=== PATIENT | male | born 1955 | race Caucasian/White ===

== ENCOUNTER → 2020-01-28 08:24 | Outpatient (BNVA) | payer BC, SELFPAY | PROVIDERS: PCP Nurse Practitioner Family; Referring Provider Nurse Practitioner Family; Visit Provider Internal Medicine | DX: I48.19 Other persistent atrial fibrillation (principal); I49.3 Ventricular premature depolarization; Z79.01 Long term (current) use of anticoagulants; Z79.899 Other long term (current) drug therapy | CPT/HCPCS: 93005 ==

== ENCOUNTER → 2020-02-06 14:21 | Outpatient (REF) | payer BC, SELFPAY ==
--- NOTE | 2020-02-06 14:44 | CA_ITS ---
Transthoracic Echocardiogram Patient (Last, First, Middle): Ravindra Buchanan J Gender: Male Date of : 1955 Age: 64 Procedure Date: 02/06/2020 Procedure Type: Transthoracic Echocardiogram Location: OP Height: 165.1 cm Weight: 52.16 kg BSA: 1.56 m2 Heart Rate: bpm BP: 115 / 76 mmHg Stallion Manager: FRANCISCA Referring MD: Shine Thomas MD Symptoms: I48.19 - Other persistent atrial fibrillation Study Quality: Fair ECG Rhythm: Atrial Fibrillation Conclusions: - The left ventricular systolic function is mild to moderately decreased. The visually estimated ejection fraction is between 40-45%. - There is moderately decreased right ventricular systolic function. - There is mild mitral valve regurgitation. Findings Left Ventricle Normal left ventricular cavity size. There is normal left ventricular wall thickness. The left ventricular systolic function is mild to moderately decreased. The visually estimated ejection fraction is between 40-45%. There is moderate global hypokinesis. Diastolic function is indeterminate on the basis of available data. Right Ventricle Normal right ventricular cavity size. There is moderately decreased right ventricular systolic function. Atria The left atrium is moderately dilated. The right atrium is normal in size. Aortic Valve There is a normal trileaflet aortic valve. There is no aortic valve stenosis. There is no aortic valve regurgitation. Mitral Valve There is mild mitral annular calcification. There is mild mitral valve regurgitation. There is no mitral valve stenosis. Pulmonic Valve The pulmonic valve was not well visualized. Tricuspid Valve Normal tricuspid valve structure. There is trace tricuspid valve regurgitation. The pulmonary artery systolic pressure is normal. Great Vessels The aortic annulus, sinuses of valsalva, and asc aorta are normal in size. Venous The inferior vena cava is normal in size and collapses greater than 50% with inspiration. Pericardium/Pleural There is no evidence of pericardial effusion. Prior Study Comparison Changes noted compared to prior study dated: 01/23/2019. LVEF diminished. Measurements 2D Linear Measurements IVSd: 0.76 0.6-0.9/0.6-1.0 cm LVIDd: 4.50 3.9-5.3/4.2-5.9 cm LVIDd Index: 2.88 2.4-3.2/2.2-3.1 cm/m2 LVIDs: 4.09 2.0-3.6 cm LVPWd: 0.67 0.7-1.1 cm Ao Root: 3.10 2.1-3.5 cm LA Diam: 3.60 2.7-3.8/3.0-4.0 cm LAIDs Index: 2.31 1.5-2.3 cm/m2 LV Mass: 121.99 67-162/88-224 g LV Mass Index: 78.20 43-95/49-115 g/m2 LVOT Diam: 2.10 3.0+(-)1.3 cm 2D Systolic Function EF 4C: 39.40 >55% EF 2C: 52.10 >55% Mitral Valve MV Pk E: 0.61 MV Decel Time: 192.00 E'Lateral: 13.50 E'Medial: 11.90 E/E' Med: 5.10 E/E' Lat: 4.50 PHT: 56.00 MVA PHT: 3.93 Decel [place]: 3.81 Aortic Valve AoV Pk Adriel: 0.86 AoV Pk Grad: 3.00 LVOT LVOT Pk Adriel: 0.53 LVOT Mn Adriel: 0.33 LVOT VTI: 0.10 LVOT Pk Grad: 1.00 LVOT Mn Grad: 1.00 LVOT Diam: 2.10 LVOT Area: 3.46 Diastolic Function MV Pk E: 0.61 E'Medial: 11.90 E/E' Med: 5.10 E' Laterial: 13.50 E/E' Lat: 4.50 Tricuspid Valve TR Pk Adriel: 2.13 TR Pk Grad: 18.00 RA Press: 3.00 RVSP: 21.00 Great Vessels Aorta Ao Root-2D: 3.10 2.0-3.7 cm Ao Asc: 3.30 2.1-3.4 cm Updated in Other Vendor System with Status of Final Shine Thomas MD electronically signed on 02/09/2020 10:07:24 AM with status of Final
== END ==
LOC: HO.CARD 14:21
PROVIDERS: Visit Provider Internal Medicine
DX: I48.19 Other persistent atrial fibrillation (principal)
CPT/HCPCS: 93306

== ENCOUNTER 2020-02-19 10:26 | Outpatient (REF) | payer BC, SELFPAY ==
--- NOTE | 2020-02-19 10:26 | CT_ITS ---
EXAMINATION: CT CHEST SCREENING CLINICAL INFORMATION: Smoking history COMPARISON: US chest CT scan January 2019 TECHNIQUE: Multidetector volumetric CT imaging of the chest is performed without contrast using low dose technique. Additional 2D coronal and sagittal reformatted images and axial 3D maximum intensity projection (MIP) images are generated on the CT workstation. This CT examination was performed using dose optimization techniques as appropriate, variously including the following: *Automated exposure control *Adjustment of mA and/or kV according to patient size (this includes techniques or standardized protocols for targeted exams where dose is matched to indication/reason for exam; i.e. extremities or head) *Use of iterative reconstruction technique DLP: 36 mGy-cm FINDINGS: LUNGS: There is evidence of emphysema. There is mild apical pleural and parenchymal scarring that is stable. There is a 3 x 4 mm calcified left apical nodule axial image 51 series 5. There is a 2 mm calcified right upper lobe nodule axial image 1:15 series 5. These are stable. No new pulmonary nodule is seen. There is scarring or subsegmental atelectasis at the left lung base that is stable. No endobronchial or endotracheal lesion is seen. MEDIASTINUM: Mild coronary artery and aortic valve calcification. The mediastinum is otherwise normal. PLEURA: There is no pleural effusion. No pleural mass or thickening. AXILLA: No lymphadenopathy. UPPER ABDOMEN: There is a small stone in the upper pole of the left kidney. There is calcification at the origin of the renal arteries, left greater than right. OSSEOUS STRUCTURES: There are degenerative changes of the spine and curvature of the midthoracic spine to the right. CT/CT lung screening IMPRESSION: Emphysema and biapical pleural and parenchymal scarring. Stable small calcified pulmonary nodules. ASSESSMENT: Lung-RADS category 2: Benign RECOMMENDATION: Annual low-dose chest CT follow-up recommended.
== END 2020-02-19 10:27 | disposition home or self-care (01) ==
LOC: HO.CT 10:26
PROVIDERS: PCP Nurse Practitioner Family; Visit Provider Surgery
DX: Z87.891 Personal history of nicotine dependence (principal)
CPT/HCPCS: 71250

== ENCOUNTER → 2020-02-25 07:47 | Outpatient (REF) | payer BC, SELFPAY ==
--- NOTE | 2020-02-25 | NM_ITS ---
Myocardial perfusion study Indication: Atrial fibrillation to evaluate for myocardial ischemia Technique: The patient was brought in for a Lexiscan perfusion study on 02/25/2020. Patient performed low-level exercise and was injected 0.4 mg of Lexiscan intravenously. Within a minute of injection, 25 mCi of sestamibi was given intravenously. Images were obtained using the SPECT gamma camera interlaced with the gating device. Images were obtained in supine position. Resting perfusion study was performed on 02/26/2020. Patient was administered 25 mCi of sestamibi intravenously at rest. Images were then obtained in supine position. Images obtained with and without CT attenuation. Total DLP 54 mGy-cm. Images were processed with the software and compared side to side in short axis, horizontal long axis and vertical long axis views. Findings: The stress perfusion study showed non attenuated images show minimally reduced uptake in the mid anteroseptal region of the LV myocardium as well as the basal and mid inferior wall of the LV myocardium. Attenuation corrected images show minimally reduced uptake in the apex of the LV myocardium. The gated study shows normal LV systolic function with calculated LVEF of 60%. LV cavity is normal size. The gated study shows normal systolic wall thickening and contraction of segments. Resting study shows no change in perfusion pattern compared to stress perfusion study. Gating at rest reveals normal systolic wall motion with ejection fraction at greater than 60 %. The findings are consistent with normal myocardial perfusion. NM/NM lizbeth perf SPECT rest & str Impression: 1. Myocardial perfusion imaging study shows normal myocardial perfusion 2. Gated LVEF is 60% 3. Transient ischemic dilatation not present EKG nondiagnostic for ischemia
--- NOTE | 2020-02-25 07:53 | CA_ITS ---
Acquisition Time: 2020-02-25 08:00:46 Total Exercise Time: 00:02:00 Test Indications: Abnormal ECG Medications: APIXABAN DILTIAZEM Protocol: LEXISCAN Max HR: 112 BPM 71% of Pred: 156 BPM Max BP: 122/078 mmHG Max Work Load: 1.0 METS Pharmacological stress test usiong Lexiscan while sitting. Pt tolerated well, denies any anginal sx. EKG with a-fib and PVC's at baseline, during the test and in recovery. Nuclear images to follow. Mildly hypotensive after lexiscan injection, that normalizes in recovery, without sx. Test reviewed with Dr. Thomas Referred By: Heaven [place] Overread By: Maya Menjivar
== END ==
LOC: HO.CARD 07:47
PROVIDERS: PCP Nurse Practitioner Family; Visit Provider Nurse Practitioner Family
DX: R93.1 Abnormal findings on diagnostic imaging of heart and coronary circulation (principal); I49.3 Ventricular premature depolarization; I48.19 Other persistent atrial fibrillation
CPT/HCPCS: 78452; 93017; A9500; J0280; J2785

== ENCOUNTER → 2020-03-18 08:20 | Outpatient (BNVA) | payer OTHER, SELFPAY | PROVIDERS: PCP Nurse Practitioner Family; Visit Provider Physician Assistant Medical | DX: S61.411A Laceration without foreign body of right hand, initial encounter (principal); W26.9XXA Contact with unspecified sharp object(s), initial encounter | CPT/HCPCS: 99203 ==

== ENCOUNTER → 2020-03-20 08:07 | Outpatient (BNVA) | payer OTHER, SELFPAY | PROVIDERS: PCP Nurse Practitioner Family; Visit Provider Internal Medicine | DX: S61.212A Laceration without foreign body of right middle finger without damage to nail, initial encounter (principal); W45.8XXA Other foreign body or object entering through skin, initial encounter | CPT/HCPCS: 99213 ==

== ENCOUNTER → 2020-03-26 09:39 | Outpatient (BNVA) | payer OTHER, SELFPAY | PROVIDERS: PCP Nurse Practitioner Family; Visit Provider Internal Medicine | DX: S61.212D Laceration without foreign body of right middle finger without damage to nail, subsequent encounter (principal); X58.XXXD Exposure to other specified factors, subsequent encounter | CPT/HCPCS: 99213 ==

== ENCOUNTER → 2020-04-04 09:46 | Outpatient (BNVA) | payer OTHER, SELFPAY | PROVIDERS: PCP Nurse Practitioner Family; Visit Provider Internal Medicine | DX: S63.652D Sprain of metacarpophalangeal joint of right middle finger, subsequent encounter (principal); X58.XXXD Exposure to other specified factors, subsequent encounter | CPT/HCPCS: 99213 ==